=== PATIENT | female | born 1935 | race Caucasian/White ===

== ENCOUNTER → 2018-07-28 | Outpatient (CLI) | payer MEDICARE, OTHER ==
[2018-07-28 16:16] LABS: T4 (THYROXINE) 9.9 mcg/dL (4.8-13.9)
[2018-07-28 16:25] LABS: THYROID STIMULATING HORMONE 4.69 mIU/L (0.358-3.740)
== END | disposition home or self-care (01) ==
LOC: CFH 11:56
PROVIDERS: ATTEND Internal Medicine Cardiovascular Disease
DX: I10 Essential (primary) hypertension (principal); I63.50 Cerebral infarction due to unspecified occlusion or stenosis of unspecified cerebral artery; E78.2 Mixed hyperlipidemia; F17.200 Nicotine dependence, unspecified, uncomplicated
CPT/HCPCS: 36415; 84436; 84443; 84481